=== PATIENT | female | born 1965 | race African-American/Black ===

== ENCOUNTER 2017-02-14 18:55 | Emergency (ER) | payer OTHER ==
[~2017-02-14] VITALS: Ht 160 cm; Wt 78.9 kg
[2017-02-14] MEDS ORDERED: NKM (19:11)
--- NOTE | 2017-02-14 19:20 | Emergency Room Report ---
History of Present Illness General Chief Complaint: Skin Rash/Abscess Source: Patient Present Illness HPI 51-year-old female presents to the emergency department for erythema, pain is 6/ 10 in severity, tenderness and swelling to the right forearm since yesterday. Patient states she believes she was bit by some sort of insect. denies fevers or chills trauma or fall. Patient reports moderate itching. Patient has not taken medications for her symptoms. Patient is up-to-date with vaccinations. Denies lesions/rashes elsewhere on the body. Denies new medications or body washes or creams. Denies swelling of the lips, tongue , throat or airway. Denies wheezing, or shortness of breath. Denies recent travel, recent illness or ill contacts. denies blisters, oral lesions, or sloughing of the skin. Denies CP, Palpitations, LOC, AMS, dizziness, Changes in Vision, Sensation, paresthesias, or a sudden severe headache. Allergies: Coded Allergies: No Known Allergies (Unverified , 02/14/17) Patient History Past Medical History: see triage record Past Surgical History: none Pertinent Family History: none Last Menstrual Period: n/a Now: No Reviewed Nursing Documentation: PMH: Agreed, PSxH: Agreed Nursing Documentation-PMH Past Medical History: No Stated History Review of Systems All Other Systems: negative except mentioned in HPI Physical Exam Vital Signs Date Time Temp Pulse Resp B/P (MAP) Pulse Ox O2 Delivery O2 Flow Rate FiO2 02/14/17 19:05 98.2 73 16 114/78 100 Room Air Sp02 EP Interpretation: reviewed, normal General Appearance: no apparent distress, alert, GCS 15, non-toxic Head: normocephalic, atraumatic Eyes: bilateral eye normal inspection, bilateral eye PERRL ENT: hearing grossly normal, normal pharynx, no angioedema, normal voice, other - no swelling of the lips or tongue Neck: full range of motion Respiratory: lungs clear, normal breath sounds, no wheezing, speaking full sentences Cardiovascular #1: regular rate, rhythm, normal capillary refill Cardiovascular #2: 2+ radial (R), 2+ radial (L) Musculoskeletal: back normal, gait/station normal, normal range of motion, swelling - swelling and ttp to the right fore arm, increased temperature to palpation and erythema noted. Neurologic: alert, oriented x3, responsive, motor strength/tone normal, sensory intact, speech normal Psychiatric: judgement/insight normal, memory normal, mood/affect normal Skin: normal color, warm/dry, well hydrated, rash - single area of induration, no fluctuance. moderate erythema with increased temperature to palpation and excoriations noted. Lymphatic: no adenopathy Medical Decision Making PA Attestation Dr. Souza is my supervising Physician whom patient management has been discussed with. Diagnostic Impression: Primary Impression: Insect bite Qualified Codes: W57.XXXA - Bitten or stung by nonvenomous insect and other nonvenomous arthropods, initial encounter Additional Impression: Cellulitis of arm, right ER Course 51-year-old female presents to the emergency department for erythema, pain is 6/ 10 in severity, tenderness and swelling to the right forearm since yesterday. Patient states she believes she was bit by some sort of insect. denies fevers or chills trauma or fall. Patient reports moderate itching. Patient has not taken medications for her symptoms. Patient is up-to-date with vaccinations. Denies lesions/rashes elsewhere on the body. Denies new medications or body washes or creams. Denies swelling of the lips, tongue , throat or airway. Denies wheezing, or shortness of breath. Denies recent travel, recent illness or ill contacts. denies blisters, oral lesions, or sloughing of the skin. Ddx considered but are not limited to cellulitis, scabies, shingles, varicella, dermatitis, urticaria, eczema, tinea, viral exanthem, SJS Vital signs: are WNL, pt. is afebrile H&PE are most consistent with insect bite to the right forearm with secondary infection noted. ORDERS: none required at this time, the diagnosis is clinical ED INTERVENTIONS: -Ice Pack -Motrin DISCHARGE: At this time pt. is stable for d/c to home. Will provide printed patient care instructions, and any necessary prescriptions. Care plan and follow up instructions have been discussed with the patient prior to discharge. Last Vital Signs Date Time Temp Pulse Resp B/P (MAP) Pulse Ox O2 Delivery O2 Flow Rate FiO2 02/14/17 19:05 98.2 73 16 114/78 100 Room Air Disposition: HOME, SELF-CARE Condition: Stable Scripts Hydrocortisone (Hydrocortisone Cream 2.5%) Y Cream.appl 1 APPLIC TP BID, #20.3 GM Prov: Wilma Quintero 02/14/17 Diphenhydramine Hcl (BENADRYL ALLERGY) 25 Mg Tablet 25 MG PO Q6HR, #20 TAB Prov: Wilma Quintero 02/14/17 Cephalexin* (KEFLEX*) 500 Mg Capsule 500 MG ORAL EVERY 12 HOURS for 7 Days, #14 CAP 0 Refills Prov: Wilma Quintero 02/14/17 Patient Instructions: Insect Bite, [id number] Additional Instructions: Take medications as directed. Follow up with a Primary Care Provider in 3-5 days, even if your symptoms have resolved. --Please review list of primary care clinics, if you do not already have a primary care provider Return sooner to ED if new symptoms occur, or current symptoms become worse. Do not drink alcohol, drive, or operate heavy machinery while taking Benadryl as this may cause drowsiness. - Please note that this Emergency Department Report was dictated using [employer] applications analyst technology software, occasionally this can lead to erroneous entry secondary to interpretation by the dictation equipment. Wilma Quintero Feb 14, 2017 19:20
[2017-02-14 19:29] VITALS: BP 114/78
[2017-02-14] MEDS ORDERED: BENADRYL ALLERG25 M1 PO (19:51)
[2017-02-14] MEDS ORDERED: HYDROCORTISONE30 G2 TP (19:51)
[2017-02-14] MEDS ORDERED: CEPHALEXIN500 MG ORAL (19:51)
[2017-02-14 20:14] VITALS: BP 124/84
== END 2017-02-14 20:16 | disposition home or self-care (01) ==
LOC: EMR 19:27
DX: S50.861A Insect bite (nonvenomous) of right forearm, initial encounter (principal); W57.XXXA Bitten or stung by nonvenomous insect and other nonvenomous arthropods, initial encounter; Y93.9 Activity, unspecified; Y99.9 Unspecified external cause status; L03.113 Cellulitis of right upper limb; R21 Rash and other nonspecific skin eruption
CPT/HCPCS: 99283

== ENCOUNTER 2017-03-26 19:05 | Emergency (ER) | payer OTHER ==
[~2017-03-26] VITALS: Ht 160 cm; Wt 79.8 kg
[~2017-03-26 19:05] MED LIST: BENADRYL ALLERG25 M1 PO; CEPHALEXIN500 MG ORAL; HYDROCORTISONE30 G2 TP; NKM
[2017-03-26 19:20] VITALS: BP 148/88
[2017-03-26] MEDS ORDERED: OMEGA 3 1,0001 EACH PO (19:21)
[2017-03-26] MEDS ORDERED: CORTISPORIN EAR10 ML RIGHT EAR ×2 (19:36→19:43)
[2017-03-26] MEDS ORDERED: DEBROX15 M1 RIGHT EAR ×2 (19:36→19:43)
[2017-03-26 19:42] VITALS: BP 148/88
--- NOTE | 2017-03-26 20:28 | Emergency Room Report ---
History of Present Illness General Chief Complaint: Earache Source: Patient Present Illness HPI The patient is a 51-year-old female presenting for ear pain. She states that she noticed right-sided ear pain 2 days ago. Pain is a 9/10 sharp sensation and is worse with touch. She has also had difficulty hearing from the right ear. She admits to cleaning the ears out frequently with Q-tips. Pain does not radiate. She denies any other symptoms including fever, chills, dizziness, blurred vision, sore throat, cough Allergies: Coded Allergies: No Known Allergies (Unverified , 02/14/17) Patient History Past Medical History: see triage record Pertinent Family History: none Last Menstrual Period: Menopause Reviewed Nursing Documentation: PMH: Agreed, PSxH: Agreed Review of Systems All Other Systems: negative except mentioned in HPI Physical Exam Vital Signs Date Time Temp Pulse Resp B/P (MAP) Pulse Ox O2 Delivery O2 Flow Rate FiO2 03/26/17 19:16 98.1 64 16 148/88 98 Room Air Sp02 EP Interpretation: reviewed, normal General Appearance: no apparent distress, alert, GCS 15, non-toxic Head: normocephalic, atraumatic Eyes: bilateral eye normal inspection, bilateral eye PERRL ENT: normal pharynx, normal voice, uvula midline, other - R EAC erythema, tender. White DC. Neck: full range of motion, supple/symm/no masses Respiratory: chest non-tender, lungs clear, normal breath sounds, speaking full sentences Cardiovascular #1: regular rate, rhythm, no edema Musculoskeletal: back normal, gait/station normal, normal range of motion, non- tender Neurologic: alert, oriented x3, responsive, motor strength/tone normal, sensory intact, speech normal Psychiatric: judgement/insight normal, memory normal, mood/affect normal, no suicidal/homicidal ideation Skin: normal color, no rash, warm/dry, well hydrated Lymphatic: adenopathy - cervical Medical Decision Making PA Attestation Dr. Birmingham is my supervising physician. Patient management was discussed with my supervising physician Diagnostic Impression: Primary Impression: Otitis externa of right ear Qualified Codes: H60.501 - Unspecified acute noninfective otitis externa, right ear ER Course The patient is a 51-year-old female presenting for ear pain. Differential diagnosis include but not limited to otitis externa, otitis media, mastoiditis, sinusitis, pharyngitis Physical exam: Vitals within normal limits. No apparent distress. HEENT: Rear external auditory canal is erythematous and edematous. White discharge is noted. Tympanic membrane not visualized as there is cerumen impaction. There is cervical lymphadenopathy. Otherwise exam is unremarkable The patient will be discharged home with a prescription for Cortisporin and debrox. Last Vital Signs Date Time Temp Pulse Resp B/P (MAP) Pulse Ox O2 Delivery O2 Flow Rate FiO2 03/26/17 19:42 98.1 16 148/88 98 Room Air 03/26/17 19:16 64 Status: improved Disposition: HOME, SELF-CARE Condition: Improved Scripts Carbamide Peroxide (DEBROX) 15 Ml Drops 10 DROP RIGHT EAR TWICE A DAY for 4 Days, ML 0 Refills Prov: EMMETT LAYTON 03/26/17 Neomycin/Polymyxin B Sulf/Hc* (CORTISPORIN EAR SOLUTION*) 10 Ml Solution 4 DROP RIGHT EAR QID, #10 ML 0 Refills Prov: EMMETT LAYTON 03/26/17 Referrals: [facility],REFERRING (PCP) Patient Instructions: Otitis Externa Additional Instructions: I discussed my findings with the patient. All questions and concerns have been answered. Treatment and medication compliance have been addressed. I advised the patient that they need to follow up with PMD in 3-5 days. Return to ED if pain remains or worsens, cough worsens or remains, you notice blood in your sputum, you notice wheezing, you experience a fever, or if needed for any reason. Patient verbalized understanding of discharge instructions. EMMETT LAYTON Mar 26, 2017 20:28
== END 2017-03-26 19:42 | disposition home or self-care (01) ==
LOC: EMR 19:40
DX: H60.91 Unspecified otitis externa, right ear (principal)
CPT/HCPCS: 99284

== ENCOUNTER 2017-06-08 19:02 | Emergency (ER) | payer OTHER ==
[~2017-06-08] VITALS: Ht 160 cm; Wt 79.4 kg
[~2017-06-08 19:02] MED LIST changes: +CORTISPORIN EAR10 ML RIGHT EAR; +DEBROX15 M1 RIGHT EAR; +OMEGA 3 1,0001 EACH PO
[2017-06-08] MEDS ORDERED: AMOXICILLI250 MG/5 M ORAL (19:17)
--- NOTE | 2017-06-08 19:47 | Emergency Room Report ---
History of Present Illness General Chief Complaint: Skin Rash/Abscess Source: Patient Present Illness HPI 52 yo female patient presents to ER complaining of dental abscess on the roof of her mouth. Patient complains of pain and right gum swelling. Patient reports right ear ache. Patient reports being seen by dentist on Sunday and prescribed antibiotics for treatment; states antibiotic prescribed was amoxicillin. Patient reports she still has antibiotic pills remaining. Patient reports taking Ibuprofen for pain; patient complains of pain with eating. Patient reports abscess began to bleed and drain two days ago; patient denies active bleeding at this time. Patient reports she has a followup appointment with dentist on Sunday. Patient denies fever, throat pain, SOB, loss of hearing, vision changes. Allergies: Coded Allergies: No Known Allergies (Unverified , 02/14/17) Patient History Past Medical History: see triage record Pertinent Family History: none Now: No Reviewed Nursing Documentation: PMH: Agreed, PSxH: Agreed Nursing Documentation-PMH Past Medical History: No History, Except For Review of Systems All Other Systems: negative except mentioned in HPI Physical Exam Vital Signs Date Time Temp Pulse Resp B/P (MAP) Pulse Ox O2 Delivery O2 Flow Rate FiO2 06/08/17 19:11 97.9 63 17 122/81 96 Room Air Sp02 EP Interpretation: reviewed, normal General Appearance: no apparent distress, alert, GCS 15, non-toxic Head: normocephalic, atraumatic Eyes: bilateral eye normal inspection, bilateral eye PERRL ENT: hearing grossly normal, no angioedema, normal voice, TMs + canals normal, uvula midline, moist mucus membranes, other - roof of mouth: 1cm abscess, erythema, open, no active bleeding, no active draining, TTP, indurated, no draining with pressure; no upper teeth; no swelling of gums, no lesions Respiratory: chest non-tender, lungs clear, normal breath sounds, speaking full sentences Cardiovascular #1: regular rate, rhythm, no edema Musculoskeletal: back normal, gait/station normal, normal range of motion, non- tender Neurologic: alert, oriented x3, responsive, motor strength/tone normal, sensory intact, speech normal Psychiatric: judgement/insight normal, memory normal, mood/affect normal, no suicidal/homicidal ideation Skin: normal color, no rash, warm/dry, well hydrated Lymphatic: no adenopathy Medical Decision Making PA Attestation Dr. Birmingham is my supervising Physician whom patient management has been discussed with. Diagnostic Impression: Primary Impression: Mouth abscess ER Course Pt. presents to the ED c/o abscess Ddx considered but are not limited to cellulitis, abscess, abrasion, laceration , herpes. Vital signs: are WNL, pt. is afebrile ORDERS: None required at this time. ED INTERVENTIONS: None required at this time. Patient declined Rx for Tylenol or Ibuprofen for pain. Continue with medications as instructed. Take Ibuprofen as needed for pain. Complete course of antibiotics as instructed. Follow up with dentist on Sunday for further treatment and care. Followup with primary care provider for further treatment and care. Patient states understanding and agrees to treatment plan. At this time pt. is stable for d/c to home. Will provide printed patient care instructions and any necessary prescriptions. Care plan and follow up instructions have been discussed with the patient prior to discharge. Patient questions asked and answered. ER precautions given. Patient instructed to return to ER immediately for any new or worsening of symptoms including but not limited to fever, worsening of pain symptoms. Last Vital Signs Date Time Temp Pulse Resp B/P (MAP) Pulse Ox O2 Delivery O2 Flow Rate FiO2 06/08/17 19:11 97.9 63 17 122/81 96 Room Air Disposition: HOME, SELF-CARE Condition: Stable Patient Instructions: Abscess Additional Instructions: Followup with dentist in 2-3 days. Take medications as directed. Patient questions asked and answered. ER precautions given, patient instructed to return to ER immediately for any new or worsening of symptoms including but not limited to fever, bleeding. Mohsen Esquivel Jun 08, 2017 19:46
[2017-06-08 20:15] VITALS: BP 122/81
== END 2017-06-08 20:15 | disposition home or self-care (01) ==
LOC: EMR 19:33
DX: K12.2 Cellulitis and abscess of mouth (principal)
CPT/HCPCS: 99282

== ENCOUNTER 2017-10-27 21:56 | Emergency (ER) | payer OTHER ==
[~2017-10-27] VITALS: Ht 160 cm; Wt 77.6 kg
[~2017-10-27 21:56] MED LIST changes: +AMOXICILLI250 MG/5 M ORAL
[2017-10-27 22:21] VITALS: BP 137/84
[2017-10-27 22:32] LABS: APPEARANCE,URINE CLEAR; BILIRUBIN, URINE NEGATIVE (NEGATIVE); GLUCOSE, URINE (UA) NEGATIVE (NEGATIVE); KETONES,URINE 1+ (NEGATIVE); LEUKOCYTE ESTERASE ,URINE 2+ (NEGATIVE); NITRITE,URINE NEGATIVE (NEGATIVE); PH,URINE 7 (4.5-8.0); PROTEIN,URINE NEGATIVE (NEGATIVE); UROBILINOGEN,URINE 1 MG/DL (0.0-1.0)
[2017-10-27 22:34] LABS: HEMATOCRIT 40.5 % (37.0-47.0); HEMOGLOBIN 13.3 G/DL (12.0-16.0); MEAN CORPUSCULAR VOLUME 81 FL (80-99); PLATELET COUNT 340 K/UL (150-450); RED BLOOD COUNT 4.99 M/UL (4.20-5.40); WHITE BLOOD COUNT 14.9 K/UL (4.8-10.8)
[2017-10-27 22:41] LABS: COLOR,URINE YELLOW
[2017-10-27 22:57] LABS: ANION GAP 11 mmol/L (5-15); BLOOD UREA NITROGEN 13 mg/dL (7-18); CALCIUM 9.1 MG/DL (8.5-10.1); CARBON DIOXIDE 24 MMOL/L (21-32); CHLORIDE 103 MMOL/L (98-107); CREATININE 0.9 MG/DL (0.55-1.30); POTASSIUM 3.9 MMOL/L (3.5-5.1); SODIUM 138 MMOL/L (136-145)
[2017-10-27 23:03] LABS: ALANINE AMINOTRANSFERASE 35 U/L (12-78); ALBUMIN 4.3 G/DL (3.4-5.0); ALBUMIN/GLOBULIN RATIO 1.1 (1.0-2.7); ALKALINE PHOSPHATASE 120 U/L (46-116); ASPARTATE AMINO TRANSFERASE 23 U/L (15-37); BILIRUBIN,TOTAL 0.3 MG/DL (0.2-1.0)
--- NOTE | 2017-10-27 23:15 | Diagnostic Imaging Report ---
EXAM: XR Abdomen, 2 Views CLINICAL HISTORY: ABD PAIN TECHNIQUE: Frontal view of the abdomen/pelvis with upright view of the abdomen. COMPARISON: 07/15/2007 FINDINGS: Intraperitoneal space: No free air. Gastrointestinal tract: Unremarkable. No dilation. Bones/joints: Unremarkable. IMPRESSION: Normal abdominal x-rays.
--- NOTE | 2017-10-27 23:16 | Diagnostic Imaging Report ---
EXAM: XR Chest, 1 View CLINICAL HISTORY: ABD PAIN TECHNIQUE: Frontal view of the chest. COMPARISON: 07/15/2007 FINDINGS: Lungs: Unremarkable. No consolidation. Pleural space: Unremarkable. No pneumothorax. Heart: Unremarkable. No cardiomegaly. Mediastinum: Unremarkable. Bones/joints: No acute osseous abnormality. IMPRESSION: No acute cardiopulmonary process.
[2017-10-28 01:49] VITALS: BP 148/90
--- NOTE | 2017-10-28 02:11 | Emergency Room Report ---
History of Present Illness General Chief Complaint: Gastrointestinal Bleed Source: Patient Present Illness HPI Patient presents with 2 days of vomiting. In today she started passing some dark blood per rectum. She believes she is ate something bad. 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 She denies any dysuria. She is postmenopausal 3 years. She's feeling weak when she stands up. She denies any prior anemia at this time. She denied pain to me, but reports 10/ pain to RN and stated it was constant and generalized. No fevers chills, sore throat, cough, chest pain, rashes. H/O arthritis and high cholesterol. Allergies: Coded Allergies: No Known Allergies (Unverified , 02/14/17) Patient History Past Medical History: see triage record Social History: Denies: smoking Social History Narrative from home Last Menstrual Period: 2014 Reviewed Nursing Documentation: PMH: Agreed; PSxH: Agreed Nursing Documentation-PMH Past Medical History: No History, Except For Review of Systems All Other Systems: negative except mentioned in HPI Physical Exam Vital Signs Date Time Temp Pulse Resp B/P (MAP) Pulse Ox O2 Delivery O2 Flow Rate FiO2 10/27/17 21:59 98.4 77 16 137/84 99 Room Air 98.4 Sp02 EP Interpretation: reviewed, normal General Appearance: well appearing, no apparent distress, GCS 15 Head: normocephalic Eyes: bilateral eye normal inspection, bilateral eye PERRL ENT: moist mucus membranes Neck: supple Respiratory: lungs clear, normal breath sounds Cardiovascular #1: regular rate, rhythm Cardiovascular #2: 2+ radial (R) Gastrointestinal: normal inspection, normal bowel sounds, non tender, no mass, non-distended Rectal: heme negative stool Musculoskeletal: back normal, gait/station normal, normal range of motion Neurologic: alert, oriented x3, grossly normal Psychiatric: mood/affect normal Skin: normal inspection, warm/dry Medical Decision Making Diagnostic Impression: Primary Impression: Nausea & vomiting Qualified Codes: R11.2 - Nausea with vomiting, unspecified Additional Impression: Rectal bleed ER Course Patient presents with vomiting and passing blood per rectum. Differential includes gastritis, gastroenteritis, tic ulcer disease, hemorrhoidal bleeding, diverticulosis amongst others. Based on the history gastroenteritis is most likely with some bleeding from straining. However we need to inform evaluation with EKG, imaging films with abdominal film and labs. Also we will draw a type and screen the possibility of a significant GI bleed. The patient be treated with IV hydration and Zofran. EKG reveals sinus rhythm with nonspecific ST-T wave changes rate of 68. Abdominal series shows possibly of gas with stool in the rectum. No masses present. White count is elevated. H&H is normal. Electrolytes unremarkable. Patient is remarkably improved with IV hydration and Zofran. She states that she still has some nausea denies any pain. Exam with soft abdomen without guarding. Patient is improved and stable for outpatient observation and treatment. Laboratory Tests Test 10/27/17 22:20 White Blood Count 14.9 K/UL (4.8-10.8) H Red Blood Count 4.99 M/UL (4.20-5.40) Hemoglobin 13.3 G/DL (12.0-16.0) Hematocrit 40.5 % (37.0-47.0) Mean Corpuscular Volume 81 FL (80-99) Mean Corpuscular Hemoglobin 26.6 PG (27.0-31.0) L Mean Corpuscular Hemoglobin Concent 32.7 G/DL (32.0-36.0) Red Cell Distribution Width 13.0 % (11.6-14.8) Platelet Count 340 K/UL (150-450) Mean Platelet Volume 6.7 FL (6.5-10.1) Neutrophils (%) (Auto) % (45.0-75.0) Lymphocytes (%) (Auto) % (20.0-45.0) Monocytes (%) (Auto) % (1.0-10.0) Eosinophils (%) (Auto) % (0.0-3.0) Basophils (%) (Auto) % (0.0-2.0) Differential Total Cells Counted 100 Neutrophils % (Manual) 90 % (45-75) H Lymphocytes % (Manual) 7 % (20-45) L Monocytes % (Manual) 2 % (1-10) Eosinophils % (Manual) 0 % (0-3) Basophils % (Manual) 1 % (0-2) Band Neutrophils 0 % (0-8) Platelet Estimate Adequate Platelet Morphology Normal Prothrombin Time 9.9 SEC (9.30-11.50) Prothrombin Time INR 1.0 (0.9-1.1) PTT 21 SEC (23-33) L Urine Color Yellow Urine Appearance Clear Urine pH 7 (4.5-8.0) Urine Specific [place] 1.010 (1.005-1.035) Urine Protein Negative (NEGATIVE) Urine Glucose (UA) Negative (NEGATIVE) Urine Ketones 1+ (NEGATIVE) H Urine Occult Blood 2+ (NEGATIVE) H Urine Nitrite Negative (NEGATIVE) Urine Bilirubin Negative (NEGATIVE) Urine Urobilinogen 1 MG/DL (0.0-1.0) H Urine Leukocyte Esterase 2+ (NEGATIVE) H Urine RBC 5-10 /HPF (0 - 2) H Urine WBC 2-4 /HPF (0 - 2) Urine Squamous Epithelial Cells Few /LPF (NONE/OCC) Urine Bacteria Few /HPF (NONE) Sodium Level 138 MMOL/L (136-145) Potassium Level 3.9 MMOL/L (3.5-5.1) Chloride Level 103 MMOL/L (98-107) Carbon Dioxide Level 24 MMOL/L (21-32) Anion Gap 11 mmol/L (5-15) Blood Urea Nitrogen 13 mg/dL (7-18) Creatinine 0.9 MG/DL (0.55-1.30) Estimate Glomerular Filtration Rate > 60 mL/min (>60) Glucose Level 148 MG/DL (74-106) H Calcium Level 9.1 MG/DL (8.5-10.1) Total Bilirubin 0.3 MG/DL (0.2-1.0) Aspartate Amino Transferase (AST) 23 U/L (15-37) Alanine Aminotransferase (ALT) 35 U/L (12-78) Alkaline Phosphatase 120 U/L (46-116) H Total Protein 8.3 G/DL (6.4-8.2) H Albumin 4.3 G/DL (3.4-5.0) Globulin 4.0 g/dL Albumin/Globulin Ratio 1.1 (1.0-2.7) Lipase 100 U/L (73-393) EKG Diagnostic Results Rate: normal Rhythm: NSR ST Segments: no acute changes Rhythm Strip Diag. Results EP Interpretation: yes Rhythm: NSR, no PVC's, no ectopy Other X-Ray Diagnostic Results Other X-Ray Diagnostic Results : # of Views/Limited Vs Complete: 1 View Indication: Other EP Interpretation: Yes Interpretation: nonspecific bowel gas, no sbo, other - paucity gas Impression: Other Electronically Signed by: Electronically signed by Gael Best MD Last Vital Signs Date Time Temp Pulse Resp B/P (MAP) Pulse Ox O2 Delivery O2 Flow Rate FiO2 10/28/17 03:15 98.4 78 15 136/92 98 Room Air 98.4 Status: improved Disposition: HOME, SELF-CARE Condition: Improved Scripts Acetaminophen (Tylenol) 325 Mg Tablet 650 MG ORAL Q6H PRN for Prn Pain/Headache/Temp > 101, #20 TAB 0 Refills Prov: Gael Best M.D. 10/28/17 Ondansetron Odt* (ZOFRAN ODT*) 4 Mg Tab.rapdis 4 MG BC EVERY 8 HOURS, #6 TAB 1 Refill Prov: Gael Best M.D. 10/28/17 Referrals: [facility],REFERRING (PCP) Gael Best M.D. Oct 28, 2017 02:11
[2017-10-28] MEDS ORDERED: ONDANSETRON ODT4 MG BC (02:15)
[2017-10-28] MEDS ORDERED: TYLENOL325 MG ORAL (02:15)
[2017-10-28] MEDS ORDERED: DiphenhydrAMINE 50mg/ml Inj IVP ONE (02:30)
[2017-10-28] MEDS ORDERED: Metoclopramide 10mg/2ml Inj IVP ONE (02:30)
[2017-10-28 03:15] VITALS: BP 136/92
--- NOTE | 2017-10-31 15:23 | Cardiology Report ---
APPROVED REPORT EKG Measurement Heart [id number] Normal sinus rhythm Nonspecific T wave abnormality Abnormal ECG
== END 2017-10-28 03:50 | disposition home or self-care (01) ==
LOC: EMR 22:30
DX: R11.2 Nausea with vomiting, unspecified (principal); K62.5 Hemorrhage of anus and rectum
CPT/HCPCS: 36415; 71045; 74018; 80053; 81003; 83690; 85007; 85025; 85610; 85730; 86850; 86900; 86901; 93005; 96360; 96361; 96374; 96375; 99284; J1200; J2405; J2765; S0028

== ENCOUNTER 2018-12-15 14:11 | Emergency (ER) | payer OTHER ==
[~2018-12-15] VITALS: Ht 160 cm; Wt 83.9 kg
[~2018-12-15 14:11] MED LIST changes: +ONDANSETRON ODT4 MG BC; +TYLENOL325 MG ORAL
[2018-12-15 14:40] VITALS: BP 110/62
--- NOTE | 2018-12-15 14:40 | NUR ---
ED Nurse Note: pt walked in to ED due to headache since Sun. has migraine. no recent head injury. took meds this morning around 0800. did not help. AAO x4. respirations even and non-labored noted. will wait for the further order.
[2018-12-15 15:20] LABS: APPEARANCE,URINE CLEAR; BILIRUBIN, URINE NEGATIVE (NEGATIVE); GLUCOSE, URINE (UA) NEGATIVE (NEGATIVE); KETONES,URINE NEGATIVE (NEGATIVE); LEUKOCYTE ESTERASE ,URINE 1+ (NEGATIVE); NITRITE,URINE NEGATIVE (NEGATIVE); PH,URINE 5 (4.5-8.0); PROTEIN,URINE NEGATIVE (NEGATIVE); UROBILINOGEN,URINE NORMAL MG/DL (0.0-1.0)
[2018-12-15 15:23] LABS: COLOR,URINE YELLOW
--- NOTE | 2018-12-15 16:07 | Emergency Room Report ---
History of Present Illness General Chief Complaint: Headache Source: Patient Present Illness HPI 53-year-old female presents after increased right-sided throbbing headache. This is been present for several days. Patient denies any visual changes. She reports having headaches in the past. She reportedly had checked her blood pressure recently and had noted this to be somewhat elevated. She denies any prior history of hypertension. She reports having some family history of aneurysm. She denies any weakness or numbness. She denies any current medications. She denies any dysuria.Patient states her mother of an aneurysm Allergies: Coded Allergies: No Known Allergies (Unverified , 02/14/17) Patient History Past Medical History: see triage record Last Menstrual Period: menopause Reviewed Nursing Documentation: PMH: Agreed; PSxH: Agreed Nursing Documentation-PMH Past Medical History: No Stated History Review of Systems All Other Systems: negative except mentioned in HPI Physical Exam Vital Signs Date Time Temp Pulse Resp B/P (MAP) Pulse Ox O2 Delivery O2 Flow Rate FiO2 12/15/18 14:25 98.6 71 18 110/62 (78) 95 Room Air Sp02 EP Interpretation: reviewed, normal General Appearance: normal inspection, well appearing, no apparent distress, alert, GCS 15, non-toxic Head: normocephalic, atraumatic ENT: normal ENT inspection, hearing grossly normal, normal voice Neck: normal inspection, full range of motion, supple, no bony tend Respiratory: normal inspection, lungs clear, normal breath sounds, no respiratory distress, no retraction, no wheezing Cardiovascular #1: regular rate, rhythm, no edema Gastrointestinal: normal inspection, normal bowel sounds, non tender, soft, no guarding, no hernia Genitourinary: no CVA tenderness Musculoskeletal: normal inspection, back normal, normal range of motion Neurologic: normal inspection, alert, oriented x3, responsive, 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 Differential diagnosis include was not limited to migraine, aneurysm, temporal arteritis among others. Because of complexity of patient's case laboratory testing and imaging studies were ordered. Patient was noted to have prior history of some headaches. This appears to be somewhat different. Patient was given medication for symptomatic relief. CT of the head was ordered which is read as negative. A CT angiogram was also ordered due to the patient's family history of aneurysm and concern for pulsatile headache.Patient appears to be normotensive and hemodynamically stable. CT of the head with IV contrast read by radiology showed no evidence of acute intracranial pathology. Patient was noted to have improvement in her headache.She will be discharged home. Patient to follow-up with primary care physician for recheck. Labs Test 12/15/18 15:00 12/15/18 16:15 Urine Color Yellow Urine Appearance Clear Urine pH 5 (4.5-8.0) Urine Specific [place] 1.015 (1.005-1.035) Urine Protein Negative (NEGATIVE) Urine Glucose (UA) Negative (NEGATIVE) Urine Ketones Negative (NEGATIVE) Urine Blood 1+ (NEGATIVE) Urine Nitrite Negative (NEGATIVE) Urine Bilirubin Negative (NEGATIVE) Urine Urobilinogen Normal MG/DL (0.0-1.0) Urine Leukocyte Esterase 1+ (NEGATIVE) Urine RBC 2-4 /HPF (0 - 2) Urine WBC 0-2 /HPF (0 - 2) Urine Squamous Epithelial Cells Few /LPF (NONE/OCC) Urine Bacteria Few /HPF (NONE) White Blood Count 6.6 K/UL (4.8-10.8) Red Blood Count 5.21 M/UL (4.20-5.40) Hemoglobin 13.6 G/DL (12.0-16.0) Hematocrit 41.9 % (37.0-47.0) Mean Corpuscular Volume 80 FL (80-99) Mean Corpuscular Hemoglobin 26.1 PG (27.0-31.0) Mean Corpuscular Hemoglobin Concent 32.5 G/DL (32.0-36.0) Red Cell Distribution Width 12.5 % (11.6-14.8) Platelet Count 346 K/UL (150-450) Mean Platelet Volume 7.0 FL (6.5-10.1) Neutrophils (%) (Auto) 55.1 % (45.0-75.0) Lymphocytes (%) (Auto) 38.1 % (20.0-45.0) Monocytes (%) (Auto) 3.5 % (1.0-10.0) Eosinophils (%) (Auto) 1.5 % (0.0-3.0) Basophils (%) (Auto) 1.8 % (0.0-2.0) Prothrombin Time 9.9 SEC (9.30-11.50) Prothromb Time International Ratio 0.9 (0.9-1.1) Activated Partial Thromboplast Time 26 SEC (23-33) Sodium Level 140 MMOL/L (136-145) Potassium Level 3.8 MMOL/L (3.5-5.1) Chloride Level 103 MMOL/L (98-107) Carbon Dioxide Level 29 MMOL/L (21-32) Anion Gap 8 mmol/L (5-15) Blood Urea Nitrogen 19 mg/dL (7-18) Creatinine 1.0 MG/DL (0.55-1.30) Estimat Glomerular Filtration Rate > 60 mL/min (>60) Glucose Level 91 MG/DL (74-106) Calcium Level 9.5 MG/DL (8.5-10.1) Total Bilirubin 0.4 MG/DL (0.2-1.0) Aspartate Amino Transf (AST/SGOT) 20 U/L (15-37) Alanine Aminotransferase (ALT/SGPT) 37 U/L (12-78) Alkaline Phosphatase 86 U/L (46-116) Total Protein 8.4 G/DL (6.4-8.2) Albumin 4.2 G/DL (3.4-5.0) Globulin 4.2 g/dL Albumin/Globulin Ratio 1.0 (1.0-2.7) Last Vital Signs Date Time Temp Pulse Resp B/P (MAP) Pulse Ox O2 Delivery O2 Flow Rate FiO2 12/15/18 14:40 98.6 71 18 110/62 95 Room Air Status: improved Disposition: HOME, SELF-CARE Condition: Stable Referrals: [facility],REFERRING (PCP) Parviz Souza MD Dec 15, 2018 16:07
--- NOTE | 2018-12-15 16:13 | Diagnostic Imaging Report ---
Indication: Headache Technique: Contiguous 5 mm thick transaxial imaging of the head obtained in a Siemens Sensation [address] scanner. Soft tissue and bone windows generated. Automatic Exposure Control was utilized. Total Dose length Product (DLP): 1421.[address] Dose Index Volume (CTDIvol): 70.38 mGy Comparison: 05/16/2010 Findings: The size and configuration of the cortical sulci, basal cisterns, and ventricles are within normal limits for age. There is no mass effect, midline shift, or edema identified. There is no evidence of acute hemorrhage or abnormal intra-axial or extra-axial fluid collections. The bones and soft tissues are unremarkable. Impression: No mass effect, edema or acute bleed. [facility] has communicated the preliminary results to the Emergency Department. Their findings are largely concordant with this report. The CT scanner at [facility] is accredited by the [employer] and the scans are performed using dose optimization techniques as appropriate to a performed exam including Automatic Exposure control.
[2018-12-15] MEDS ORDERED: Isovue-370 150ml vial INJ PRN (16:15)
--- NOTE | 2018-12-15 16:19 | NUR ---
ED Nurse Note: pt lying in bed comfortably.
[2018-12-15 16:45] LABS: INR 0.9 (0.9-1.1)
[2018-12-15] MEDS ORDERED: Ketorolac 30mg Inj IV ONE (16:45)
[2018-12-15] MEDS ORDERED: Metoclopramide 10mg/2ml Inj IVP ONE (16:45)
[2018-12-15 16:46] LABS: ANION GAP 8 mmol/L (5-15); BLOOD UREA NITROGEN 19 mg/dL (7-18); CALCIUM 9.5 MG/DL (8.5-10.1); CARBON DIOXIDE 29 MMOL/L (21-32); CHLORIDE 103 MMOL/L (98-107); POTASSIUM 3.8 MMOL/L (3.5-5.1); SODIUM 140 MMOL/L (136-145)
[2018-12-15 16:51] LABS: ALANINE AMINOTRANSFERASE 37 U/L (12-78); ALBUMIN 4.2 G/DL (3.4-5.0); ALKALINE PHOSPHATASE 86 U/L (46-116); ASPARTATE AMINO TRANSFERASE 20 U/L (15-37); BILIRUBIN,TOTAL 0.4 MG/DL (0.2-1.0)
[2018-12-15 17:09] LABS: BASOPHILS % (AUTO) 1.8 % (0.0-2.0); EOSINOPHILS % (AUTO) 1.5 % (0.0-3.0); HEMATOCRIT 41.9 % (37.0-47.0); HEMOGLOBIN 13.6 G/DL (12.0-16.0); LYMPHOCYTES % (AUTO) 38.1 % (20.0-45.0); MEAN CORPUSCULAR VOLUME 80 FL (80-99); MONOCYTES % (AUTO) 3.5 % (1.0-10.0); NEUTROPHILS % (AUTO) 55.1 % (45.0-75.0); PLATELET COUNT 346 K/UL (150-450); RED BLOOD COUNT 5.21 M/UL (4.20-5.40); RED CELL DISTRIBUTION WIDTH 12.5 % (11.6-14.8); WHITE BLOOD COUNT 6.6 K/UL (4.8-10.8)
[2018-12-15 17:55] VITALS: BP 110/69
--- NOTE | 2018-12-15 17:56 | NUR ---
ED Nurse Note: pt lying in bed with eye closed. teresa any pain. will wait for the further order.
--- NOTE | 2018-12-15 18:23 | Diagnostic Imaging Report ---
Indication: Focal weakness. Acute cva. Headache Technique: Continuous helical transaxial imaging of the head was obtained during rapid intravenous contrast administration. Arterial phase of enhancement obtained. Coronal 2-D reformats were also obtained and maximum intensity projection images in multiple planes. Study obtained in a Siemens sensation [address] Automatic Exposure Control was utilized. Total Dose length Product (DLP): 5071.[address] Dose Index Volume (CTDIvol): 54.98,54.98,54.98 mGy Comparison: None Findings: The study is technically limited due to relatively poor bolus injection of contrast and venous contamination due to suboptimal timing of this scan. Multiple cortical and deep cerebral veins venous sinuses are noted. There is no obvious aneurysm or vascular malformation. There is no obvious high-grade stenosis or occlusion. The right vertebral artery is not seen and hypoplastic or absent. IMPRESSION: Limited evaluation as described above. No high-grade stenosis or occlusion identified. CTA is negative. [facility] has communicated the preliminary results to the Emergency Department. Their findings are largely concordant with this report.
[2018-12-15] MEDS ORDERED: FIORICET1 EA ORAL (18:27)
[2018-12-15 18:28] VITALS: BP 107/71
--- NOTE | 2018-12-15 18:30 | NUR ---
ER DISCHARGE NOTE: Patient is cleared to be discharged per ERMD, pt is aox4, on room air, with stable vital signs. pt was given dc instructions, pt was able to verbalize understanding, pt id band and iv site removed without complications. pt is able to ambulate with steady gait. pt took all belongings.
== END 2018-12-15 18:38 | disposition home or self-care (01) ==
LOC: EMR 14:50
DX: R51 Headache (principal)
CPT/HCPCS: 36415; 70450; 70496; 80053; 81003; 85025; 85610; 85730; 96374; 96375; 99284; J1885; J2765; J7040; Q9967

== ENCOUNTER 2019-11-01 09:01 | Emergency (ER) | payer MEDICAID, OTHER ==
[~2019-11-01] VITALS: Ht 160 cm; Wt 77.1 kg
[~2019-11-01 09:01] MED LIST changes: +FIORICET1 EA ORAL
[2019-11-01 09:30] VITALS: BP 133/78
--- NOTE | 2019-11-01 09:33 | Emergency Room Report ---
History of Present Illness General Chief Complaint: Pain Source: Patient Present Illness HPI Disclaimer: Please note that this report is being documented using DRAGON technology. This can lead to erroneous entry secondary to incorrect interpretation by the dictating instrument. HPI: 54-year-old female history of obesity presents for evaluation of left hip pain. Patient states she was at [place] several days ago walking extended distances and the following day experienced left leg pain with motion. Difficulty bearing weight. She was able to ambulate to the emergency department. She felt as if her hip popped out and noted some instability days ago. Is concerned she may have dislocated. She denies fall to the floor or other trauma. Pain is relieved by rest and exacerbated by motion. Denies swelling in the groin, dysuria, hematuria, ventura pain, nausea, vomiting, fevers or flank pain. She took 1 tablet of Motrin yesterday with no improvement. 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 EOMI. Resp: Normal work of breathing Abdomen: Soft, obese, nontender, nondistended Skin: Intact. No abrasions, laceration or rash over the exposed skin MSK: Normal tone and bulk. Moving all extremities. Pelvis stable AP and lateral compression. Limb length equal. There is no deformity palpable. Pain with active and passive range of motion in the left hip but joint is stable. There is tenderness over the region of the iliopsoas tendon in the left groin. No defect palpable in the abdominal wall, no hernia appreciated. Neuro: Awake and alert. Mentating appropriately Medical Decision Making Diagnostic Impression: Primary Impression: Groin strain Additional Impression: Hip pain ER Course This a 54-year-old female presenting for evaluation of left hip pain. Concern for bursitis, overuse injury, tendinitis, ligamentous injury, muscle strain. No evidence of hernia and the patient denies trauma though states she felt instability in that her hip dislocated at one point. X-rays of the hip and pelvis were obtained which showed no evidence of fracture dislocation. Radiology concern for possible abnormality in the femoral head and CT was obtained which did not show evidence of fracture or dislocation either but concerning for possible early signs of degenerative disease. Patient will be treated with continued NSAIDs likely overuse injury resulting in strain. She was provided with a cane for stability. Follow-up with PMD as needed. Instructed to return to the ED with new or worsening symptoms. Other X-Ray Diagnostic Results Other X-Ray Diagnostic Results #1: X-Ray ordered: Pelvis # of Views/Limited Vs Complete: 1 View Indication: Pain Interpretation: no dislocation, no soft tissue swelling, no fractures Impression: No acute disease Other X-Ray Diagnostic Results #2: X-Ray ordered: Left hip # of Views/Limited Vs Complete: 2 View Indication: Pain EP Interpretation: Yes Interpretation: no dislocation, no soft tissue swelling, no fractures Impression: No acute disease Electronically Signed by: Electronically signed by Dr. Chauncey Gibson CT/MRI/US Diagnostic Results CT/MRI/US Diagnostic Results : Impression EXAM: CT Left Lower Extremity Without Intravenous Contrast, Hip CLINICAL HISTORY: INJ TECHNIQUE: Axial computed tomography images of the left hip without intravenous contrast. CTDI is 8.1 mGy and DLP is 263.8 mGy-cm. One or more of the following dose reduction techniques were used: automated exposure control, adjustment of the mA and/or kV according to patient size, use of iterative reconstruction technique. COMPARISON: Left hip radiographs on 11/01/2019 FINDINGS: Bones/joints: No acute fracture or dislocation identified. The changes of the left femoral head on the radiographs is compatible with degenerative osteophytic spurring. Degenerative changes of the left hip with subchondral cysts in the femoral head and acetabulum. Degenerative changes of the visualized lower lumbar spine. Soft tissues: Small fat-containing umbilical hernia. Vasculature: Atherosclerotic changes of the vasculature. Bowel: Diverticulosis. Bladder: Underdistended bladder. Reproductive: Retroverted uterus. IMPRESSION: No acute fracture or dislocation identified. The changes of the left femoral head on the radiographs is compatible with degenerative osteophytic spurring. Dictated By: Bismark Calix MD Electronically Signed By: Bismark Calix MD Signed Date/Time 11/01/19 1124 CC: Chauncey Gibson MD Last Vital Signs Date Time Temp Pulse Resp B/P (MAP) Pulse Ox O2 Delivery O2 Flow Rate FiO2 11/01/19 09:13 98.8 86 18 133/78 (96) 98 Room Air Disposition: HOME, SELF-CARE Condition: Stable Scripts Ibuprofen* (MOTRIN*) 600 Mg Tablet 600 MG ORAL Q6H PRN for For Pain, #30 TAB 0 Refills Prov: Chauncey Gibson MD 11/01/19 Acetaminophen* (TYLENOL EXTRA STRENGTH*) 500 Mg Tablet 500 MG ORAL Q8H PRN for Prn Headache/Temp > 101, #30 TAB 0 Refills Prov: Chauncey Gibson MD 11/01/19 Chauncey Gibson MD Nov 01, 2019 09:33
--- NOTE | 2019-11-01 09:33 | NUR ---
ED Nurse Note:pt. came with c/o left groin pain when walking, no injury reported, VSS, pt. is ambulatory, she was examed by ER MD in my presence
[2019-11-01] MEDS ORDERED: TYLENOL EXTRA500 MG ORAL (09:56)
[2019-11-01] MEDS ORDERED: IBUPROFEN600 M1 ORAL (09:56)
[2019-11-01 10:05] VITALS: BP 133/78
--- NOTE | 2019-11-01 10:05 | NUR ---
ED Nurse Note:pt. was provided with cane per MD order Pt cleared by health care Provider for discharge. DC instructions/prescription was given and explained to pt and verbalized understanding of teachings. All medical deviecs such as ID band removed. Pt is AAO x4, ambulatory and left with all personal belongings.
--- NOTE | 2019-11-01 10:14 | Diagnostic Imaging Report ---
EXAM: XR Left Hip With Pelvis When Performed, 2 or 3 Views CLINICAL HISTORY: PAIN TECHNIQUE: Two or three views of the left hip with pelvis when performed. COMPARISON: None FINDINGS: Bones/joints: No displaced fracture or dislocation identified. However, mild sclerosis and cortical irregularity in the subcapital region of the left femur on frog leg view is nonspecific. Nondisplaced fracture cannot be excluded. Degenerative changes of the left hip. Soft tissues: Normal. IMPRESSION: No displaced fracture or dislocation identified. However, mild sclerosis and cortical irregularity in the subcapital region of the left femur on frog leg view is nonspecific. Nondisplaced fracture cannot be excluded. Further evaluation could be performed with CT or MRI if clinically indicated.
--- NOTE | 2019-11-01 10:16 | Diagnostic Imaging Report ---
EXAM: XR Pelvis, 1 or 2 Views CLINICAL HISTORY: PAIN TECHNIQUE: Frontal view of the pelvis. COMPARISON: None FINDINGS: Bones/joints: Irregularity in the subcapital region of the left femur nonspecific. Nondisplaced fracture is possible. Mild degenerative changes of the hips. Soft tissues: Normal. IMPRESSION: Irregularity in the subcapital region of the left femur nonspecific. Nondisplaced fracture is possible. Further evaluation could be performed with CT or MRI if clinically indicated.
--- NOTE | 2019-11-01 11:09 | NUR ---
ED Nurse Note: pt wants to leave the unit. Dr. Gibson notified. per md, it is ok to be discharge before CT result. MD will contact pt with result.
--- NOTE | 2019-11-01 11:25 | Diagnostic Imaging Report ---
EXAM: CT Left Lower Extremity Without Intravenous Contrast, Hip CLINICAL HISTORY: INJ TECHNIQUE: Axial computed tomography images of the left hip without intravenous contrast. CTDI is 8.1 mGy and DLP is 263.8 mGy-cm. One or more of the following dose reduction techniques were used: automated exposure control, adjustment of the mA and/or kV according to patient size, use of iterative reconstruction technique. COMPARISON: Left hip radiographs on 11/01/2019 FINDINGS: Bones/joints: No acute fracture or dislocation identified. The changes of the left femoral head on the radiographs is compatible with degenerative osteophytic spurring. Degenerative changes of the left hip with subchondral cysts in the femoral head and acetabulum. Degenerative changes of the visualized lower lumbar spine. Soft tissues: Small fat-containing umbilical hernia. Vasculature: Atherosclerotic changes of the vasculature. Bowel: Diverticulosis. Bladder: Underdistended bladder. Reproductive: Retroverted uterus. IMPRESSION: No acute fracture or dislocation identified. The changes of the left femoral head on the radiographs is compatible with degenerative osteophytic spurring.
--- NOTE | 2019-11-01 11:30 | NUR ---
ED Nurse Note:called pt. over cell phone with negative CT results
== END 2019-11-01 11:15 | disposition home or self-care (01) ==
LOC: EMR 09:26
DX: S39.011A Strain of muscle, fascia and tendon of abdomen, initial encounter (principal); M25.552 Pain in left hip; E66.9 Obesity, unspecified; X58.XXXA Exposure to other specified factors, initial encounter; Y92.9 Unspecified place or not applicable; K42.9 Umbilical hernia without obstruction or gangrene
CPT/HCPCS: 72170; 73500; 73700; Z7502; 99284

== ENCOUNTER 2020-05-27 19:31 | Emergency (ER) | payer OTHER ==
[~2020-05-27] VITALS: Ht 172.7 cm; Wt 81.6 kg
[~2020-05-27 19:31] MED LIST changes: +IBUPROFEN600 M1 ORAL; +TYLENOL EXTRA500 MG ORAL
--- NOTE | 2020-05-27 19:45 | NUR ---
ED Nurse Note: Patient walked into the ED with c/o left leg pain onset 05/24. Pt stated pain happens when she changes position. Pt stated she felt theres a "fluid" on her legs. Pt was adviced by pcp to go to ER. PAtient denies SOB//CP, n/v/d, no trauma/injury. PAtient is AAOx4 and ambulatory. VSS as documented
--- NOTE | 2020-05-27 20:15 | NUR ---
ED Nurse Note: Blood and rapid covid test done
--- NOTE | 2020-05-27 20:21 | Emergency Room Report ---
History of Present Illness General Chief Complaint: Pain Source: Patient Present Illness HPI Patient is a 55-year-old female denies any significant past medical history who presents to the ER complaining of left leg swelling and weakness for the past 4 days. She states that it is been difficult for her to walk. She denies any history of stroke in the past. She denies any headache or head trauma. She denies any slurred speech. She states that she spoke with her doctor who told her to come to the emergency department. She denies any chest pain or shortness of breath. She denies any specific trauma. She denies any chest pain or shortness of breath. Allergies: Coded Allergies: No Known Allergies (Unverified , 02/14/17) COVID-19 Screening Contact w/high risk pt: No Recent Travel to affected area: No Experienced COVID-19 symptoms?: No COVID-19 Testing performed [employer]: No COVID-19 Screening: Negative COVID-19 COVID-19 Testing Source: aguilar Patient History Now: No Reviewed Nursing Documentation: PMH: Agreed; PSxH: Agreed Review of Systems All Other Systems: negative except mentioned in HPI Physical Exam Vital Signs Date Time Temp Pulse Resp B/P (MAP) Pulse Ox O2 Delivery O2 Flow Rate FiO2 05/27/20 19:40 98.4 62 19 98 Sp02 EP Interpretation: reviewed, normal General Appearance: no apparent distress, alert, GCS 15, non-toxic Head: normocephalic, atraumatic Eyes: bilateral eye normal inspection, bilateral eye PERRL ENT: hearing grossly normal, normal pharynx, no angioedema, normal voice Neck: full range of motion, supple/symm/no masses Respiratory: chest non-tender, lungs clear, normal breath sounds, speaking full sentences Cardiovascular #1: regular rate, rhythm, no edema Gastrointestinal: normal bowel sounds, non tender, soft, non-distended, no guarding, no rebound Rectal: deferred Musculoskeletal: back normal Neurologic: insecticide mixer III-XII nml as tested, other - Left lower extremity 4-5 motor strength right lower extremity 5 out of 5 motor strength, bilateral upper extremities 5 out of 5 motor strength no slurred speech Psychiatric: no suicidal/homicidal ideation Skin: no rash Lymphatic: no adenopathy Procedures Critical Care Time Critical Care Time Total critical care time: Approximately 35 minutes. Due to a high probability of clinically significant, life threatening deterioration, the patient required my highest level of preparedness to intervene emergently and I personally spent this critical care time directly and personally managing the patient. This critical care time included obtaining a history; examining the patient; pulse oximetry; ordering and review of studies; arranging urgent treatment with development of a management plan; evaluation of patient's response to treatment; frequent reassessment; and, discussions with other providers.This critical care time was performed to assess and manage the high probability of imminent, life- threatening deterioration that could result in multi-organ failure. It was exclusive of separately billable procedures and treating other patients and teaching time. Please see MDM section and the rest of the note for further information on patient assessment and treatment. Medical Decision Making Diagnostic Impression: Primary Impression: CVA (cerebral vascular accident) Additional Impression: Weakness ER Course Patient presents with left leg weakness for the past [address] demonstrates no acute intracranial pathology. Patient given aspirin p.o. Labs demonstrate no significant acute abnormalities. Patient will need further neurological work-up and MRI. Ultrasound demonstrates no evidence for DVT. Patient will be transferred to [facility] for further treatment and evaluation. Laboratory Tests Test 05/27/20 20:05 White Blood Count 6.6 K/UL (4.8-10.8) Red Blood Count 4.62 M/UL (4.20-5.40) Hemoglobin 12.1 G/DL (12.0-16.0) Hematocrit 38.5 % (37.0-47.0) Mean Corpuscular Volume 83 FL (80-99) Mean Corpuscular Hemoglobin 26.2 PG (27.0-31.0) L Mean Corpuscular Hemoglobin Concent 31.3 G/DL (32.0-36.0) L Red Cell Distribution Width 16.9 % (11.6-14.8) H Platelet Count 414 K/UL (150-450) Mean Platelet Volume 7.9 FL (6.5-10.1) Neutrophils (%) (Auto) 39.3 % (45.0-75.0) L Lymphocytes (%) (Auto) 51.6 % (20.0-45.0) H Monocytes (%) (Auto) 6.2 % (1.0-10.0) Eosinophils (%) (Auto) 1.3 % (0.0-3.0) Basophils (%) (Auto) 1.5 % (0.0-2.0) Prothrombin Time 11.1 SEC (9.30-11.50) Prothrombin Time INR 1.0 (0.9-1.1) Activated Partial Thromboplast Time 25 SEC (23-33) Sodium Level 136 MMOL/L (136-145) Potassium Level 3.9 MMOL/L (3.5-5.1) Chloride Level 103 MMOL/L (98-107) Carbon Dioxide Level 25 MMOL/L (21-32) Anion Gap 8 mmol/L (5-15) Blood Urea Nitrogen 18 mg/dL (7-18) Creatinine 1.0 MG/DL (0.55-1.30) Estimated Glomerular Filtration Rate > 60 mL/min (>60) Glucose Level 95 MG/DL (74-106) Calcium Level 8.9 MG/DL (8.5-10.1) Magnesium Level 2.0 MG/DL (1.8-2.4) Total Bilirubin 0.4 MG/DL (0.2-1.0) Aspartate Amino Transferase (AST) 29 U/L (15-37) Alanine Aminotransferase (ALT) 49 U/L (12-78) Alkaline Phosphatase 134 U/L (46-116) H Total Creatine Kinase 100 U/L (26-308) Troponin I 0.000 ng/mL (0.000-0.056) Total Protein 7.5 G/DL (6.4-8.2) Albumin 4.0 G/DL (3.4-5.0) Globulin 3.5 g/dL Albumin/Globulin Ratio 1.1 (1.0-2.7) EKG Diagnostic Results Troponin ordered: Yes When was troponin ordered?: May 27, 2020 EKG Time: 20:14 EP Interpretation: Mar Arguello MD Rate: normal - 66 bpm Rhythm: NSR ST Segments: no acute changes ASA given to the pt in ED: No Rhythm Strip Diag. Results Rhythm Strip Time: 20:52 EP Interpretation: yes Rate: 63 bpm Rhythm: NSR, no PVC's, no ectopy Chest X-Ray Diagnostic Results Chest X-Ray Diagnostic Results : Chest X-Ray Ordered: Yes # of Views/Limited/Complete: 1 View Indication: Other - cva EP Interpretation: Yes Interpretation: no consolidation, no effusion, no pneumothorax, no acute cardiopulmonary disease Impression: No acute disease Electronically Signed by: Mar Arguello MD Last Vital Signs Date Time Temp Pulse Resp B/P (MAP) Pulse Ox O2 Delivery O2 Flow Rate FiO2 05/27/20 19:40 98.4 62 19 98 Disposition: ADMITTED INPATIENT - Telemetry Condition: Critical Physician Consult: Dr. Tom at 2110 Referrals: [facility],REFERRING (PCP) Additional Instructions: Please note that this report is being documented using [employer] technology. This can lead to erroneous entry secondary to incorrect interpretation by the dictating instrument. Mar Arguello M.D. May 27, 2020 20:21
--- NOTE | 2020-05-27 20:30 | NUR ---
ED Nurse Note: Xray and CT scan done
--- NOTE | 2020-05-27 20:34 | Diagnostic Imaging Report ---
EXAM: CT Head Without Intravenous Contrast CLINICAL HISTORY: CVA TECHNIQUE: Axial computed tomography images of the head/brain without intravenous contrast. CTDI is 53.4 mGy and DLP is 1018.8 mGy-cm. One or more of the following dose reduction techniques were used: automated exposure control, adjustment of the mA and/or kV according to patient size, use of iterative reconstruction technique. COMPARISON: 12/15/2018. FINDINGS: Brain: No hemorrhage, extra-axial fluid collection, mass effect, or edema. Ventricles: Unremarkable. Bones/joints: Unremarkable. No fracture. Soft tissues: Unremarkable. Sinuses: Unremarkable as visualized. Mastoid air cells: Unremarkable as visualized. IMPRESSION: 1. No acute intracranial abnormality.
[2020-05-27 20:36] LABS: BASOPHILS % (AUTO) 1.5 % (0.0-2.0); EOSINOPHILS % (AUTO) 1.3 % (0.0-3.0); HEMATOCRIT 38.5 % (37.0-47.0); HEMOGLOBIN 12.1 G/DL (12.0-16.0); LYMPHOCYTES % (AUTO) 51.6 % (20.0-45.0); MEAN CORPUSCULAR VOLUME 83 FL (80-99); MONOCYTES % (AUTO) 6.2 % (1.0-10.0); NEUTROPHILS % (AUTO) 39.3 % (45.0-75.0); PLATELET COUNT 414 K/UL (150-450); RED BLOOD COUNT 4.62 M/UL (4.20-5.40); RED CELL DISTRIBUTION WIDTH 16.9 % (11.6-14.8); WHITE BLOOD COUNT 6.6 K/UL (4.8-10.8)
--- NOTE | 2020-05-27 20:40 | NUR ---
ED Nurse Note: LOUIS barnes at bedside
[2020-05-27 20:57] LABS: ANION GAP 8 mmol/L (5-15); BLOOD UREA NITROGEN 18 mg/dL (7-18); CALCIUM 8.9 MG/DL (8.5-10.1); CARBON DIOXIDE 25 MMOL/L (21-32); CHLORIDE 103 MMOL/L (98-107); POTASSIUM 3.9 MMOL/L (3.5-5.1); SODIUM 136 MMOL/L (136-145)
[2020-05-27 21:01] LABS: ALANINE AMINOTRANSFERASE 49 U/L (12-78); ALBUMIN/GLOBULIN RATIO 1.1 (1.0-2.7); ALKALINE PHOSPHATASE 134 U/L (46-116); ASPARTATE AMINO TRANSFERASE 29 U/L (15-37); BILIRUBIN,TOTAL 0.4 MG/DL (0.2-1.0); CREATINE KINASE 100 U/L (26-308)
[2020-05-27 21:10] VITALS: BP 128/85
--- NOTE | 2020-05-27 21:10 | NUR ---
AMA: SEE AMA FORM. Patient signed AMA and left. Explained to the pt the risk and consequence of leaving AMA. CAMEROND notified
--- NOTE | 2020-05-27 21:10 | NUR ---
ER DISCHARGE NOTE: Patient left AMA. pt id band and iv site removed without complications. pt is able to ambulate with steady gait. pt took all belongings.
[2020-05-27] MEDS ORDERED: Aspirin Baby 81mg ORAL ONE (21:15)
--- NOTE | 2020-05-28 14:27 | Diagnostic Imaging Report ---
Indication: Chest pain Technique: XRAY Chest 1v Comparison: 10/27/2017 Findings: Heart size and mediastinal contours are stable compared to the prior exam. There is no focal airspace consolidation, pneumothorax or pleural effusion. Osseous structures demonstrate no acute abnormality. Impression: No radiographic evidence of acute cardiopulmonary disease.
== END 2020-05-27 21:10 | disposition other institution (70) ==
LOC: EMR 19:58
DX: I63.9 Cerebral infarction, unspecified (principal); R53.1 Weakness
CPT/HCPCS: 36415; 70450; 71045; 80053; 82550; 83735; 84484; 85025; 85610; 85730; 93005; 93970; U0002; Z7502; 99291